=== PATIENT | male | born 1980 | race Caucasian/White ===

== ENCOUNTER 2022-08-02 18:05 | Inpatient (IN) | payer OTHER ==
[2022-08-02] MEDS ORDERED: LACTATED RINGERS SOLUTION 1000 ML INFUS.BAG IV ONE (19:28)
[2022-08-02] MEDS ORDERED: diazePAM CARPU-JECT 10 MG/2 ML DISP.SYRIN IVPUSH ONE (19:29)
[2022-08-02] MEDS ORDERED: ACETAMINOPHEN 1000 MG/100 ML BAG IVPB ONE (19:30)
[2022-08-02] MEDS ORDERED: diazePAM CARPU-JECT 10 MG/2 ML DISP.SYRIN ONE (19:39)
[2022-08-02] MEDS ORDERED: ACETAMINOPHEN INJECTION 100 ML IVPB ONE (19:39)
[2022-08-02] MEDS ORDERED: TRANEXAMIC ACID 1000 MG/10 ML VIAL IVPUSH ONE (19:40)
[2022-08-02] MEDS ORDERED: TRANEXAMIC ACID 1000 MG/10 ML VIAL ONE (20:41)
[2022-08-02 20:46] LABS: BASO % 0.4 % (0-2.0); EOS % 0.1 % (0-4.5); HEMATOCRIT 27.3 % (35.4-49); HEMOGLOBIN 8.7 GM/dL (11.7-16.9); LYMPH % 6.3 % (8-40); MCH 26.1 pg (25.7-33.7); MEAN CELL VOLUME 81.6 fl (80-96); MEAN PLT VOLUME 8.6 fl (7.5-11.1); NEUT % 84.2 % (42.8-82.8); PLATELET COUNT 56 10^3/uL (134-434); RBC 3.34 M/mm3 (4.00-5.60); RDW 19.7 % (11.9-15.9); WHITE BLOOD COUNT 15.6 K/mm3 (4.0-10.0)
[2022-08-02 20:52] LABS: EPI CELLS 5 /uL (0-25.1); HYALINE CASTS 1 /uL (0-3.1); URINE APPEARANCE CLEAR; URINE BACTERIA 11 /uL (0-1359); URINE BILIRUBIN 1+ (NEGATIVE); URINE COLOR DK YELLOW; URINE GLUCOSE (UA) NEGATIVE (NEGATIVE); URINE KETONE 1+ (NEGATIVE); URINE LEUK ESTERASE NEGATIVE (NEGATIVE); URINE NITRITE NEGATIVE (NEGATIVE); URINE PROTEIN 2+ (NEGATIVE); URINE RBC 25 /uL (0-23.9); URINE WBC 8 /uL (0-25.8)
[2022-08-02] MEDS ORDERED: PIPERACILLIN/TAZOB 4.5 GM 4.5 GM in DEXTROSE 5%-WATER 100 ML IVPB ONE (20:53)
[2022-08-02] MEDS ORDERED: VANCOMYCIN/WATER 1,250 MG/250 ML BAG (RESTRICTED TO ID ONLY) IVPB ONE (20:54)
[2022-08-02] MEDS ORDERED: VANCOMYCIN/WATER 1250 MG 1,250 MG/250 ML BAG IVPB ONE (21:01)
[2022-08-02 21:02] LABS: ALBUMIN 3.1 g/dl (3.4-5.0); BLOOD UREA NITROGEN 9.8 mg/dL (7-18); CALCIUM 8.2 mg/dL (8.5-10.1); MAGNESIUM 1.9 mg/dL (1.8-2.4)
[2022-08-02 21:05] LABS: INR 1.42 (0.83-1.09); PROTHROMBIN TIME (PATIENT) 16.4 SEC (9.7-13.0)
[2022-08-02 21:05] LABS: CREATININE 0.6 mg/dL (0.55-1.3)
[2022-08-02 21:07] LABS: BILIRUBIN,TOTAL 1.7 mg/dL (0.2-1); TOT PROT 8.7 g/dl (6.4-8.2)
[2022-08-02 21:07] LABS: ACTIVATED PTT 42.6 SECONDS (25.2-36.5)
[2022-08-02 21:34] LABS: LACTIC ACID 2.4 mmol/L (0.4-2.0)
[2022-08-03] MEDS ORDERED: POTASSIUM CHLORIDE TABS 20 MEQ TABLET.ER (FP) PO ONE ×2 (00:57→01:31)
[2022-08-03] MEDS ORDERED: VANCOMYCIN/WATER 1,250 MG/250 ML BAG (RESTRICTED TO ID ONLY) IVPB SCH (01:00)
[2022-08-03] MEDS ORDERED: LORazepam 1 MG TABLET PO PRN (01:02)
[2022-08-03] MEDS ORDERED: LORazepam 1 MG TABLET ONE (01:50)
[2022-08-03] MEDS ORDERED: ACETAMINOPHEN 325 MG TABLET (FP) ONE (01:51)
[2022-08-03] MEDS ORDERED: FOLIC ACID INJECTION - 1 MG, THIAMINE HCL 100 MG, MULTIVIT INJECTION ADULT 10 ML in SOD... IVPB ONE (02:00)
[2022-08-03] MEDS: PIPERACILLIN/TAZOB 3.375 GM 3.375 GM in DEXTROSE 5%-WATER - 50 ML IVPB SCH ×4 (02:56→21:30)
[2022-08-03 03:05] VITALS: BMI 26.4
[2022-08-03] MEDS: THIAMINE HCL 200 MG/2 ML VIAL IVPB SCH ×3 (05:50→22:12)
[2022-08-03] MEDS: LORazepam 1 MG TABLET PO SCH ×4 (05:51→23:00)
[2022-08-03] MEDS ORDERED: VANCOMYCIN PREMIX 1.75 GM 1,750 MG/350 ML PIGGYBACK IVPB SCH ×2 (09:00)
[2022-08-03 09:12] LABS: BASO % 0.6 % (0-2.0); EOS % 0.5 % (0-4.5); HEMOGLOBIN 8.1 GM/dL (11.7-16.9); MCH 26.9 pg (25.7-33.7); MCHC 32.5 g/dl (32.0-35.9); MEAN CELL VOLUME 82.7 fl (80-96); MEAN PLT VOLUME 8.5 fl (7.5-11.1); MONO % 8.6 % (3.8-10.2); NEUT % 85.3 % (42.8-82.8); PLATELET COUNT 62 10^3/uL (134-434); RBC 3.02 M/mm3 (4.00-5.60); RDW 19.3 % (11.9-15.9); WHITE BLOOD COUNT 10.7 K/mm3 (4.0-10.0)
[2022-08-03 09:17] LABS: INR 1.38 (0.83-1.09); PROTHROMBIN TIME (PATIENT) 15.9 SEC (9.7-13.0)
[2022-08-03 09:19] LABS: ACTIVATED PTT 40.8 SECONDS (25.2-36.5)
[2022-08-03 09:44] LABS: IRON SERUM 42 ug/dL (50-175)
[2022-08-03 09:45] LABS: TOTAL IRON BINDING CAPACITY 316 ug/dL (250-450)
[2022-08-03 09:52] LABS: MAGNESIUM 1.9 mg/dL (1.8-2.4)
[2022-08-03 09:55] LABS: PHOSPHOROUS 2.2 mg/dL (2.5-4.9)
[2022-08-03] MEDS: FOLIC ACID 1 MG TABLET (FP) PO SCH (10:30)
[2022-08-03] MEDS: VANCOMYCIN PREMIX 1.75 GM 1,750 MG/350 ML PIGGYBACK IVPB SCH (23:57)
[2022-08-04] MEDS ORDERED: LORazepam 2 MG/ML SDV VIAL IVPUSH ONE ×2 (00:20→01:05)
[2022-08-04] MEDS ORDERED: MELATONIN 5 MG TABLETS PO ONE (00:20)
[2022-08-04] MEDS ORDERED: HALOPERIDOL LACTATE 5 MG/ML IM ONE ×5 (02:47→04:07)
[2022-08-04] MEDS: PIPERACILLIN/TAZOB 3.375 GM 3.375 GM in DEXTROSE 5%-WATER - 50 ML IVPB SCH ×3 (02:52→15:00)
[2022-08-04] MEDS ORDERED: LORazepam 2 MG/ML SDV VIAL IVPUSH PRN ×4 (02:54→06:00)
[2022-08-04] MEDS ORDERED: MAGNESIUM SULF 50% (8.12 MEQ/2 ML-1 GM VIAL) IVPB ONE (02:56)
[2022-08-04] MEDS ORDERED: HALOPERIDOL DECANOATE 100 MG/ML IM ONE (04:07)
[2022-08-04] MEDS ORDERED: PHENobarbital SODIUM 65 MG/1 ML VIAL IVPUSH ONE (04:16)
[2022-08-04] MEDS: LORazepam 1 MG TABLET PO SCH ×6 (05:05→23:29)
[2022-08-04] MEDS: THIAMINE HCL 200 MG/2 ML VIAL IVPB SCH ×3 (05:54→22:30)
[2022-08-04] MEDS: LORazepam 2 MG/ML SDV VIAL IVPUSH PRN ×5 (07:26→19:53)
[2022-08-04 07:42] LABS: HEMATOCRIT 26.2 % (35.4-49); HEMOGLOBIN 8.7 GM/dL (11.7-16.9); MCH 27.4 pg (25.7-33.7); MCHC 33.1 g/dl (32.0-35.9); MEAN CELL VOLUME 82.8 fl (80-96); MEAN PLT VOLUME 9.3 fl (7.5-11.1); PLATELET COUNT 70 10^3/uL (134-434); RBC 3.17 M/mm3 (4.00-5.60); RDW 19.6 % (11.9-15.9); WHITE BLOOD COUNT 9.8 K/mm3 (4.0-10.0)
[2022-08-04 08:04] LABS: ALBUMIN 2.9 g/dl (3.4-5.0); BLOOD UREA NITROGEN 8.7 mg/dL (7-18); CALCIUM 8.7 mg/dL (8.5-10.1)
[2022-08-04 08:07] LABS: PHOSPHOROUS 2.3 mg/dL (2.5-4.9)
[2022-08-04 08:09] LABS: BILIRUBIN,TOTAL 2.1 mg/dL (0.2-1); CREATININE 0.5 mg/dL (0.55-1.3); TOT PROT 8.1 g/dl (6.4-8.2)
[2022-08-04] MEDS ORDERED: LORazepam 2 MG TABLET PO SCH (11:00)
[2022-08-04] MEDS ORDERED: LORazepam 1 MG TABLET PO PRN (11:17)
[2022-08-04] MEDS: FOLIC ACID 1 MG TABLET (FP) PO SCH (11:24)
[2022-08-04] MEDS: ASCORBIC ACID 250 MG TABLET (FP) PO SCH (11:24)
[2022-08-04] MEDS: ZINC SULFATE 220 MG CAPSULE (FP) PO SCH (11:24)
[2022-08-04] MEDS: VANCOMYCIN PREMIX 1.75 GM 1,750 MG/350 ML PIGGYBACK IVPB SCH (11:25)
[2022-08-04] MEDS: MULTIVITAMINS (DAILY MVI) TABLET (FP) PO SCH (11:25)
[2022-08-04 20:09] LABS: BILIRUBIN,DIRECT 1.3 mg/dL (0.0-0.2)
[2022-08-05] MEDS ORDERED: LORazepam 0.5 MG TABLET PO PRN
[2022-08-05] MEDS: LORazepam 2 MG/ML SDV VIAL IVPUSH PRN ×2 (00:38)
[2022-08-05] MEDS: LORazepam 1 MG TABLET PO SCH ×4 (05:10→22:57)
[2022-08-05] MEDS: LORazepam 0.5 MG TABLET PO SCH ×4 (05:49→22:55)
[2022-08-05] MEDS: THIAMINE HCL 200 MG/2 ML VIAL IVPB SCH ×3 (05:50→21:34)
[2022-08-05 08:54] LABS: BASO % 1.1 % (0-2.0); EOS % 1.7 % (0-4.5); HEMATOCRIT 27.5 % (35.4-49); HEMOGLOBIN 8.9 GM/dL (11.7-16.9); LYMPH % 10.2 % (8-40); MCH 27.4 pg (25.7-33.7); MCHC 32.4 g/dl (32.0-35.9); MEAN CELL VOLUME 84.6 fl (80-96); MEAN PLT VOLUME 8.9 fl (7.5-11.1); MONO % 11.2 % (3.8-10.2); NEUT % 75.8 % (42.8-82.8); PLATELET COUNT 75 10^3/uL (134-434); RBC 3.25 M/mm3 (4.00-5.60); RDW 19.5 % (11.9-15.9); WHITE BLOOD COUNT 7.7 K/mm3 (4.0-10.0)
[2022-08-05 09:05] LABS: MAGNESIUM 2.1 mg/dL (1.8-2.4)
[2022-08-05 09:06] LABS: CALCIUM 8.7 mg/dL (8.5-10.1)
[2022-08-05 09:08] LABS: ALBUMIN 2.9 g/dl (3.4-5.0); BLOOD UREA NITROGEN 10.9 mg/dL (7-18)
[2022-08-05 09:09] LABS: BILIRUBIN,DIRECT 1.3 mg/dL (0.0-0.2); CREATININE 0.5 mg/dL (0.55-1.3)
[2022-08-05 09:10] LABS: PHOSPHOROUS 3.8 mg/dL (2.5-4.9)
[2022-08-05 09:12] LABS: TOT PROT 8.3 g/dl (6.4-8.2)
[2022-08-05] MEDS: PIPERACILLIN/TAZOB 3.375 GM 3.375 GM in DEXTROSE 5%-WATER - 50 ML IVPB SCH (09:20)
[2022-08-05] MEDS: FOLIC ACID 1 MG TABLET (FP) PO SCH ×2 (09:28→10:04)
[2022-08-05] MEDS: MULTIVITAMINS (DAILY MVI) TABLET (FP) PO SCH ×2 (09:28→10:04)
[2022-08-05] MEDS: ASCORBIC ACID 250 MG TABLET (FP) PO SCH ×2 (09:28→10:04)
[2022-08-05] MEDS: ZINC SULFATE 220 MG CAPSULE (FP) PO SCH ×2 (09:28→10:04)
[2022-08-05] MEDS: SODIUM CHLORIDE 1,000 ML IV SCH (10:15)
[2022-08-05] MEDS: KCL 10 MEQ IVPB 10 MEQ/100 ML INFUS.BAG IVPB SCH ×3 (14:57→17:34)
[2022-08-06] MEDS: SODIUM CHLORIDE 1,000 ML IV SCH ×2 (04:27→10:15)
[2022-08-06] MEDS ORDERED: LORazepam 0.5 MG TABLET PO ONE (05:00)
[2022-08-06] MEDS: LORazepam 1 MG TABLET PO SCH ×4 (05:08→22:37)
[2022-08-06 07:33] LABS: HEMATOCRIT 27.1 % (35.4-49); HEMOGLOBIN 8.8 GM/dL (11.7-16.9); MCH 27.6 pg (25.7-33.7); MCHC 32.4 g/dl (32.0-35.9); MEAN PLT VOLUME 8.8 fl (7.5-11.1); PLATELET COUNT 84 10^3/uL (134-434); RBC 3.19 M/mm3 (4.00-5.60); RDW 19.8 % (11.9-15.9); WHITE BLOOD COUNT 6.5 K/mm3 (4.0-10.0)
[2022-08-06 07:52] LABS: ALBUMIN 2.6 g/dl (3.4-5.0); BLOOD UREA NITROGEN 11.6 mg/dL (7-18); MAGNESIUM 1.9 mg/dL (1.8-2.4)
[2022-08-06 07:55] LABS: CREATININE 0.5 mg/dL (0.55-1.3); PHOSPHOROUS 2.7 mg/dL (2.5-4.9)
[2022-08-06 07:56] LABS: BILIRUBIN,TOTAL 1.8 mg/dL (0.2-1); TOT PROT 7.8 g/dl (6.4-8.2)
[2022-08-06 08:27] LABS: EPI CELLS 2 /uL (0-25.1); HYALINE CASTS 1 /uL (0-3.1); URINE APPEARANCE CLEAR; URINE BILIRUBIN 1+ (NEGATIVE); URINE COLOR DK YELLOW; URINE GLUCOSE (UA) NEGATIVE (NEGATIVE); URINE KETONE 1+ (NEGATIVE); URINE LEUK ESTERASE TRACE (NEGATIVE); URINE NITRITE POSITIVE (NEGATIVE); URINE PROTEIN 2+ (NEGATIVE); URINE RBC 11 /uL (0-23.9); URINE UROBILINOGEN 0.2 mg/dL (0.2-1.0); URINE WBC 6 /uL (0-25.8)
[2022-08-06 09:20] LABS: URINE BACTERIA FEW /uL (0-1359)
[2022-08-06] MEDS: FOLIC ACID 1 MG TABLET (FP) PO SCH (10:25)
[2022-08-06] MEDS: MULTIVITAMINS (DAILY MVI) TABLET (FP) PO SCH (10:25)
[2022-08-06] MEDS: ZINC SULFATE 220 MG CAPSULE (FP) PO SCH (10:25)
[2022-08-06] MEDS: ASCORBIC ACID 250 MG TABLET (FP) PO SCH (10:25)
[2022-08-06] MEDS ORDERED: PHYTONADIONE 10 MG/1 ML AMP IVPB ONE (12:45)
[2022-08-06] MEDS ORDERED: POTASSIUM CHLORIDE TABS 20 MEQ TABLET.ER (FP) PO ONE (12:50)
[2022-08-07] MEDS ORDERED: LORazepam 0.5 MG TABLET PO PRN
[2022-08-07] MEDS: LORazepam 0.5 MG TABLET PO SCH ×3 (05:15→16:50)
[2022-08-07 07:42] LABS: BASO % 0.9 % (0-2.0); EOS % 3.9 % (0-4.5); HEMOGLOBIN 8.9 GM/dL (11.7-16.9); INR 1.39 (0.83-1.09); LYMPH % 14.4 % (8-40); MCH 27.8 pg (25.7-33.7); MCHC 33.1 g/dl (32.0-35.9); MEAN CELL VOLUME 83.9 fl (80-96); MEAN PLT VOLUME 8.6 fl (7.5-11.1); NEUT % 70.8 % (42.8-82.8); PLATELET COUNT 89 10^3/uL (134-434); PROTHROMBIN TIME (PATIENT) 16.1 SEC (9.7-13.0); RBC 3.22 M/mm3 (4.00-5.60); RDW 19.5 % (11.9-15.9); WHITE BLOOD COUNT 7.1 K/mm3 (4.0-10.0)
[2022-08-07 08:03] LABS: ALBUMIN 2.6 g/dl (3.4-5.0); BLOOD UREA NITROGEN 8.4 mg/dL (7-18); CALCIUM 8.3 mg/dL (8.5-10.1)
[2022-08-07 08:06] LABS: CREATININE 0.5 mg/dL (0.55-1.3)
[2022-08-07 08:08] LABS: BILIRUBIN,TOTAL 1.9 mg/dL (0.2-1); TOT PROT 7.7 g/dl (6.4-8.2)
[2022-08-07] MEDS: MULTIVITAMINS (DAILY MVI) TABLET (FP) PO SCH (10:30)
[2022-08-07] MEDS: ASCORBIC ACID 250 MG TABLET (FP) PO SCH (10:30)
[2022-08-07] MEDS: ZINC SULFATE 220 MG CAPSULE (FP) PO SCH (10:30)
[2022-08-07] MEDS: PANTOPRAZOLE 40 MG TABLET PO SCH (10:30)
[2022-08-07] MEDS: FOLIC ACID 1 MG TABLET (FP) PO SCH (10:30)
[2022-08-07 20:48] VITALS: TEMP 98.3
[2022-08-08] MEDS: LORazepam 0.5 MG TABLET PO SCH (01:10)
[2022-08-08] MEDS ORDERED: LORazepam 0.5 MG TABLET PO ONE (05:00)
[2022-08-08 05:56] VITALS: BP 119/65; PULSE 86
[2022-08-08 07:23] LABS: HEMATOCRIT 27.3 % (35.4-49); MCH 27.8 pg (25.7-33.7); MCHC 33.1 g/dl (32.0-35.9); MEAN PLT VOLUME 8.8 fl (7.5-11.1); PLATELET COUNT 99 10^3/uL (134-434); RBC 3.25 M/mm3 (4.00-5.60); WHITE BLOOD COUNT 6.9 K/mm3 (4.0-10.0)
[2022-08-08 07:38] LABS: ALBUMIN 2.8 g/dl (3.4-5.0); CALCIUM 8.4 mg/dL (8.5-10.1); MAGNESIUM 1.9 mg/dL (1.8-2.4)
[2022-08-08 07:39] LABS: BLOOD UREA NITROGEN 8.7 mg/dL (7-18)
[2022-08-08 07:41] LABS: CREATININE 0.5 mg/dL (0.55-1.3); PHOSPHOROUS 3.6 mg/dL (2.5-4.9)
[2022-08-08 07:42] LABS: BILIRUBIN,TOTAL 1.7 mg/dL (0.2-1)
[2022-08-08 07:43] LABS: TOT PROT 7.7 g/dl (6.4-8.2)
[2022-08-08 08:46] VITALS: RESP 16
[2022-08-08] MEDS: ZINC SULFATE 220 MG CAPSULE (FP) PO SCH (09:14)
[2022-08-08] MEDS: PANTOPRAZOLE 40 MG TABLET PO SCH (09:14)
[2022-08-08] MEDS: MULTIVITAMINS (DAILY MVI) TABLET (FP) PO SCH (09:14)
[2022-08-08] MEDS: FOLIC ACID 1 MG TABLET (FP) PO SCH (09:14)
[2022-08-08] MEDS: ASCORBIC ACID 250 MG TABLET (FP) PO SCH (09:14)
== END 2022-08-08 11:55 | disposition left against medical advice (07) | DRG 661 ==
LOC: JER 18:05 → JERBED 23:37 → J4W 08-03 02:30
PROVIDERS: ADMIT Internal Medicine; ATTEND Internal Medicine
DX: D69.6 Thrombocytopenia, unspecified (principal); F10.239 Alcohol dependence with withdrawal, unspecified; K72.90 Hepatic failure, unspecified without coma; F10.231 Alcohol dependence with withdrawal delirium; E87.6 Hypokalemia; D72.829 Elevated white blood cell count, unspecified; D68.9 Coagulation defect, unspecified; D64.9 Anemia, unspecified; R50.9 Fever, unspecified; R00.0 Tachycardia, unspecified; K80.20 Calculus of gallbladder without cholecystitis without obstruction; R74.8 Abnormal levels of other serum enzymes; K70.10 Alcoholic hepatitis without ascites; E88.09 Other disorders of plasma-protein metabolism, not elsewhere classified; K91.840 Postprocedural hemorrhage of a digestive system organ or structure following a digestive system procedure; M62.82 Rhabdomyolysis; R45.1 Restlessness and agitation; R01.1 Cardiac murmur, unspecified; K76.89 Other specified diseases of liver; Y84.8 Other medical procedures as the cause of abnormal reaction of the patient, or of later complication, without mention of misadventure at the time of the procedure
CPT/HCPCS: 0241U-QW; 36415; 36430; 71045-TC-FY; 74181-TC; 76705-TC; 80053; 81003; 82248; 82272; 82550; 82553; 82962; 82977; 83540; 83550; 83605; 83690; 83735; 84100; 84443; 85025; 85027; 85610; 85730; 86704; 86708; 86803; 86850; 86900; 86901; 87040; 87086; 87340; 87517; 93005; 93010; 93306-TC; 99291; J3370; P9017; P9034